=== PATIENT | female | born 1990 | race Caucasian/White ===

== ENCOUNTER 2019-05-26 07:47 | Emergency (ER) | payer OTHER, SELFPAY ==
[2019-05-26 07:54] VITALS: BP 123/78; PULSE 65; RESP 16; TEMP 36.7; O2SAT 99; BMI 21.4
--- NOTE | 2019-05-26 07:59 | ED.EYEPROB ---
HPI - Eye Problem General Chief complaint: Eye Problems Stated complaint: irritated right eye, pain has scratch on it Time Seen by Provider: 05/26/19 07:52 Source: patient Mode of arrival: Ambulatory History of Present Illness HPI Narrative: Patient comes emergency department complaining of right eye discomfort and redness since last evening. Patient states that she wears disposable contact around the clock, and early changes them, because it irritates a ?chronic scratch? that she has on her eye. Patient states that she was at a bonfire last night, and believes her contact dried out. She states that she began to notice that her I was uncomfortable, and so she took her contact out. When patient woke up this morning, her eye was very uncomfortable and she was having some photophobia. Patient states this has happened on numerous occasions before, and usually, she just removes the contact and gives it a day, and the eye gets better on its own. However, the patient states that she has things to do today and does not have time to just rest and so she has come to the ED to see if we can do anything to make the eye better. Patient denies any fevers or chills. No URI type symptoms. No other complaints at this time. Related Data Previous Rx's Medication Instructions Recorded gentamicin-prednisolone 1 drop EYE-RIGHT TID #5 ml 05/26/19 Allergies Allergy/AdvReac Type Severity Reaction Status Date / Time No Known Drug Allergies Allergy Verified 05/26/19 07:53 Review of Systems Constitutional Constitutional: Denies chills, Denies fatigue, Denies fever(s), Denies frequent falls, Denies lethargy and Denies weakness Eyes Eyes: Denies change in vision, Denies eye discharge, Reports irritation, Denies loss of vision and Reports eye pain ENT Ears, Nose, Mouth, and Throat: Denies change in voice, Denies dizziness, Denies neck pain, Denies sore throat and Denies throat swelling Cardiovascular Cardiovascular: Denies chest pain, Denies irregular heart rhythm, Denies lightheadedness, Denies palpitations, Denies dyspnea, Denies dyspnea on exertion and Denies orthopnea Respiratory Respiratory: Denies cough, Denies dyspnea, Denies dyspnea on exertion and Denies wheezing Gastrointestinal Gastrointestinal: Denies abdominal pain, Denies change in bowel habits, Denies diarrhea, Denies nausea and Denies vomiting Genitourinary Genitourinary: Denies hematuria, Denies flank pain, Denies urinary incontinence and Denies urinary urgency Musculoskeletal Musculoskeletal: Denies back pain, Denies muscle weakness, Denies neck pain, Denies numbness and Denies tingling Integumentary/Breasts Skin/Breast: Denies pruritus, Denies erythema, Denies rash and Denies wounds Neurologic Neurologic: Denies behavioral changes, Denies confusion, Denies dizziness, Denies frequent falls, Denies loss of vision, Denies numbness, Denies tingling and Denies weakness Psychiatric Psychiatric: Denies anxiety, Denies behavioral changes, Denies confusion, Denies depression, Denies homicidal ideation and Denies suicidal ideation Endocrine Endocrine: Denies fatigue, Denies flushing and Denies palpitations Hematologic/Lymphatic Hematologic/Lymphatic: Denies easy bruising Allergic/Immunologic Allergic/Immunologic: Denies urticaria, Denies throat swelling and Denies wheezing Patient History Medical History Myopia (Acute) Social History Smoking Status: Never smoker alcohol intake frequency: a few times a month Substance Use Type: does not use Exam Initial Vital Signs Initial Vital Signs: Vital Signs Temperature 98.0 F 05/26/19 07:54 Pulse Rate 65 05/26/19 07:54 Respiratory Rate 16 05/26/19 07:54 Blood Pressure 123/78 05/26/19 07:54 Pulse Oximetry 99 05/26/19 07:54 Const General: cooperative and well developed Nutritional Appearance: well nourished Orientation: alert, awake, oriented x3 and not confused [facility] Head: normocephalic and atraumatic Ears: external ears normal Nose: external nose normal and No nasal discharge Face and sinus: face symmetric and No dry mucous membranes Mouth: oral mucosae normal and moist mucous membranes Teeth and gingiva: dentition normal Eyes General: appearance normal, both eyes and all related structures Eyelids: eyelids normal Conjunctivae: conjunctival abnormality right (Two punctate corneal lesions on fluorescein exam) conjunctival injection Sclera: sclerae normal Pupils: PERRL EOM: EOM intact bilaterally Neck Neck: normal visual inspection, trachea midline, No lymphadenopathy, No midline deformity and No JVD Lymphatic: No lymphedema Resp Effort & Inspection: normal respiratory effort, able to speak in complete sentences, no respiratory distress and no use of accessory muscles Skin General: no rashes or lesions noted, No jaundice and No petechiae Neuro General: alert, oriented x3, gait normal and no focal motor deficits Speech: speech normal Extrem General: full ROM Course Course Course Narrative: The patient was give a dose of proparacaine topically in the emergency department for examination. We discussed using ibuprofen and Tylenol for comfort at home. We also discussed that the contact lenses should be used only as directed by the metal engraver, and not left in longer than that. The patient should not wear her contact lenses until her eye is completely better, and should use a new pair. I will place her antibiotic drops for her contact-associated punctate keratitis. Orders Ordered: Discontinued Medications Proparacaine HCl (Parcaine 0.5% Ophth Mary[place]uy) 1 drops EYE-RIGHT NOW ONE Stop: 05/26/19 08:02 Vital Signs Vital signs: Vital Signs - 8 hr 05/26/19 07:54 Temperature 98.0 F Pulse Rate 65 Respiratory Rate 16 Blood Pressure 123/78 Pulse Oximetry 99 MDM - Eye Problem Medical Records Attestation: I reviewed the patient's medical records. Discharge Plan Departure Patient Disposition: Home Clinical Impression: Punctate keratitis of right eye Instructions: DI for Conjunctivitis Prescriptions: New gentamicin-prednisolone 0.3-1 % drops,suspension 1 drop EYE-RIGHT TID Qty: 5 RF: 0 Referrals: [facility] [Provider Group]
[2019-05-26] MEDS: PROPARACAINE 0.5% OPHTH SOL 1 DROPS EYE-RIGHT (08:34)
== END 2019-05-26 08:34 | disposition home or self-care (01) ==
LOC: ED 08:34
PROVIDERS: Emergency Provider Emergency Medicine
DX: H16.141 Punctate keratitis, right eye (principal)
CPT/HCPCS: 99282